=== PATIENT | male | born 1940 | race Caucasian/White ===

== ENCOUNTER 2017-05-06 11:10 | Day surgery (SDC) | payer MEDICARE, OTHER ==
[2017-05-06] MEDS ORDERED: Sodium Chloride 0.9% 10 ML Syringe FLUSH PRN (11:30)
[2017-05-06] MEDS ORDERED: Lactated Ringers 1,000 ML IV SCH (11:30)
[2017-05-06] MEDS ORDERED: Midazolam 1 MG/ML 2 ML SDV ONE ×2 (12:48→12:53)
[2017-05-06] MEDS ORDERED: Propofol 200 MG/20 ML SDV ONE ×2 (12:48→12:53)
[2017-05-06] MEDS ORDERED: fentaNYL 100 MCG/2 ML SDV ONE ×2 (12:48→12:53)
--- NOTE | 2017-05-06 12:55 | PCM.PN ---
- General Info Date of Service: 05/06/17 - Review of Systems Systems Review Comment:: 76-year-old male referred by Skip Tucker for colonoscopy. He was recently noted to have a positive FIT test. He also has had polyps removed from his colon in the past. He is medically stable to proceed today with no significant changes from his recent exam. I have discussed the proposed colonoscopy with the patient. Risks such as but not limited to bleeding and GI injury reviewed. He appears to understand and agrees to proceed. - Patient Data Vitals - Most Recent: Last Vital Signs Temp 97.0 F 05/06/17 11:30 Pulse 89 05/06/17 11:30 Resp 16 05/06/17 11:30 BP 145/79 H 05/06/17 11:30 Pulse Ox 97 05/06/17 11:30 Weight - Most Recent: 90.718 kg Lab Results Last 24 Hours: Laboratory Results - last 24 hr 05/06/17 Range/Units 11:50 POC Glucose 137 H (65-110) mg/dl Med Orders - Current: Current Medications Lactated Ringer's (Ringers, Lactated) 1,000 mls @ 70 mls/hr IV ASDIRECTED ARI Last Admin: 05/06/17 12:03 Dose: 70 mls/hr Sodium Chloride (Saline Flush) 10 ml FLUSH ASDIRECTED PRN PRN Reason: Keep Vein Open Discontinued Medications Fentanyl (Sublimaze) Confirm Administered Dose 100 mcg .ROUTE .STK-MED ONE Stop: 05/06/17 12:49 Midazolam HCl (Versed 1 Mg/Ml) Confirm Administered Dose 2 mg .ROUTE .STK-MED ONE Stop: 05/06/17 12:49 Propofol (Diprivan 20 Ml) Confirm Administered Dose 200 mg .ROUTE .STK-MED ONE Stop: 05/06/17 12:49 - Problem List Review Problem List Initiated/Reviewed/Updated: Yes - Assessment Assessment:: Guaiac positive stools - Plan Plan:: Colonoscopy
--- NOTE | 2017-05-06 13:30 | PCM.OPNOTE ---
- General Post-Op/Procedure Note Date of Surgery/Procedure: 05/06/17 Operative Procedure(s): Colonoscopy Findings: Small internal hemorrhoids normal appearing colon Pre Op Diagnosis: Guiac + Stools Post-Op Diagnosis: Hemorrhoids Anesthesia Technique: MAC Primary Surgeon: Arik Hinds Pathology: none Output, Urine Amount: 0 EBL in mLs: 0 Complications: None Condition: Good Free Text/Narrative:: Intake & Output 05/05/17 05/06/17 05/06/17 22:59 06:59 14:59 Intake Total 1000 Balance 1000
--- NOTE | 2017-05-07 13:16 | OR ---
Date of Procedure: 05/06/2017 PREOPERATIVE DIAGNOSIS: Guaiac-positive stools. POSTOPERATIVE DIAGNOSIS: Internal hemorrhoids. OPERATION PERFORMED: Colonoscopy. INDICATIONS FOR SURGERY: This 76-year-old male, who does have a known history of colon polyps, was recently noted to have a positive fit test. He is referred for colonoscopy. FINDINGS: No polyps or other abnormalities were seen in the patient's colon. He does have a mild degree of internal hemorrhoids, which may be the source of his recently positive test. PROCEDURE IN DETAIL: The patient was taken to the operating room. He was given intravenous sedation and with him in the left lateral decubitus position, digital rectal exam was performed. No rectal masses were noted. The Olympus colonoscope was inserted into the rectum. Retroflexed examination of the rectal canal was performed. The scope was then carefully advanced under direct visualization through the entire length of the colon until cecum is reached. Cecal acquisition was confirmed by noting the normal internal cecal anatomy including the appendiceal orifice and ileocecal valve. After carefully examining the cecum, the scope was slowly withdrawn sequentially re-examining the colonic segments. Once the colon had been completely examined and with no sign of any complication, the scope was removed and the patient was taken from the operating room in satisfactory condition. ESTIMATED BLOOD LOSS: Zero. COMPLICATIONS: None. PROGNOSIS: Good. AUDRA Hinds MD /[id number]
== END 2017-05-06 14:18 | disposition home or self-care (01) ==
LOC: LL.SDS 11:10
PROVIDERS: ATTEND Surgery
DX: K64.8 Other hemorrhoids (principal); Z86.010 Personal history of colon polyps; Z79.84 Long term (current) use of oral hypoglycemic drugs; Z79.899 Other long term (current) drug therapy
CPT/HCPCS: 45378; 82962; J7120; 00810-QZ; J2250; J2704; J3010

== ENCOUNTER → 2019-04-20 | Outpatient (CLI) | payer MEDICARE, OTHER | LOC: LL.SLEEP 08:27 | PROVIDERS: ATTEND Internal Medicine | DX: G47.33 Obstructive sleep apnea (adult) (pediatric) (principal) | CPT/HCPCS: Q3014 ==

== ENCOUNTER 2021-06-05 09:46 | Day surgery (SDC) | payer OTHER, MEDICARE ==
[~2021-06-05 09:46] MED LIST: Midazolam 1 MG/ML 2 ML SDV ONE; Propofol 200 MG/20 ML SDV ONE
[2021-06-05] MEDS ORDERED: Sodium Chloride 0.9% 10 ML Syringe FLUSH SCH (10:00)
[2021-06-05] MEDS ORDERED: Lactated Ringers 1,000 ML IV SCH (10:15)
--- NOTE | 2021-06-05 10:20 | PCM.HPR ---
H & P Addendum review - H & P Addendum Review Date of Original H & P: 05/13/21 Date Reviewed: 06/05/21 Time Reviewed: 10:20 Patient was Examined: No Changes
[2021-06-05] MEDS ORDERED: Propofol 200 MG/20 ML SDV ONE (10:32)
[2021-06-05] MEDS ORDERED: Midazolam 1 MG/ML 2 ML SDV ONE (10:32)
--- NOTE | 2021-06-05 10:53 | PCM.OPNOTE ---
- General Post-Op/Procedure Note Date of Surgery/Procedure: 06/05/21 Operative Procedure(s): Colonoscopy Findings: Normal Pre Op Diagnosis: Hx Colon Polyps Post-Op Diagnosis: Same Anesthesia Technique: MAC Primary Surgeon: Jm Quesada Anesthesia Provider: Tammy Dove Complications: None Condition: Good
--- NOTE | 2021-06-05 13:12 | OR ---
Date of Procedure: 06/05/2021 PREOPERATIVE DIAGNOSIS: History of colon polyps. POSTOPERATIVE DIAGNOSIS: Normal colonoscopy. PROCEDURE: Colonoscopy. ANESTHESIA: IV sedation. PROCEDURE IN DETAIL: The patient was brought to the procedure room where he was placed on his left side and IV sedation administered. Digital rectal exam was performed, which was normal. Colonoscope was inserted and advanced to the level of the cecum without difficulty. Cecal position was confirmed by identifying the appendiceal lumen and ileocecal valve. Prep was fair with some thick stool remaining throughout that was mostly irrigated and suctioned such that large polyps or tumors would have been visible. Upon withdrawing the scope, the ascending, transverse, and descending colon were normal in appearance. Sigmoid colon and rectum were normal. Retroflexion was normal. Air was removed and the scope withdrawn. Patient tolerated the procedure well and returned to recovery in stable condition. No further colon screenings are necessary due to patient's age. AUDRA MONGE MD /[id number]
== END 2021-06-05 12:05 | disposition home or self-care (01) ==
LOC: LL.SDS 09:46
PROVIDERS: ATTEND Surgery
DX: Z12.11 Encounter for screening for malignant neoplasm of colon (principal); N40.0 Benign prostatic hyperplasia without lower urinary tract symptoms; E11.9 Type 2 diabetes mellitus without complications; D07.5 Carcinoma in situ of prostate; I10 Essential (primary) hypertension; E78.2 Mixed hyperlipidemia; D64.9 Anemia, unspecified; N52.9 Male erectile dysfunction, unspecified; G47.33 Obstructive sleep apnea (adult) (pediatric); Z79.899 Other long term (current) drug therapy; Z79.84 Long term (current) use of oral hypoglycemic drugs
CPT/HCPCS: 00812; 82947; J2250; J2704; J7120

== ENCOUNTER 2021-06-15 13:48 | Emergency (ER) | payer OTHER, MEDICARE ==
[2021-06-15] MEDS ORDERED: Sodium Chloride 0.9% 10 ML Syringe FLUSH PRN (13:55)
[2021-06-15 14:54] LABS: CORONAVIRUS COVID-19 NAA NEGATIVE (NEGATIVE); RESPIRATORY SYNCYTIAL VIR NAA NEGATIVE (NEGATIVE)
[2021-06-15 15:03] LABS: ANION GAP 11.7 meq/L (7-15); CHLORIDE,CL 107 mmol/L (98-107); SODIUM,NA 142 mmol/L (136-145)
[2021-06-15] MEDS: Sodium Chloride 0.9% 1,000 ML IV SCH (16:55)
== END 2021-06-15 19:20 | disposition home or self-care (01) ==
LOC: SUPCPDRO 13:48 → LL.ED 13:48
DX: E86.0 Dehydration (principal); I10 Essential (primary) hypertension; E11.9 Type 2 diabetes mellitus without complications; J44.9 Chronic obstructive pulmonary disease, unspecified; E66.9 Obesity, unspecified; Z79.84 Long term (current) use of oral hypoglycemic drugs; Z79.899 Other long term (current) drug therapy; Z20.822 Contact with and (suspected) exposure to COVID-19; W19.XXXA Unspecified fall, initial encounter
CPT/HCPCS: 0241U; 36415; 70450; 71045; 80053; 80307; 81001; 83605; 83735; 84100; 84484; 85025; 85610; 85730; 86140; 87040; 93005; 99285-25; J7030

== ENCOUNTER 2022-04-11 11:05 | Emergency (ER) | payer OTHER, MEDICARE | END 2022-04-11 12:40 | disposition home or self-care (01) | LOC: LL.ED 11:05 | DX: S60.222A Contusion of left hand, initial encounter (principal); I10 Essential (primary) hypertension; E11.9 Type 2 diabetes mellitus without complications; E66.9 Obesity, unspecified; Z68.28 Body mass index [BMI] 28.0-28.9, adult; Z79.84 Long term (current) use of oral hypoglycemic drugs; W00.0XXA Fall on same level due to ice and snow, initial encounter; Y93.01 Activity, walking, marching and hiking; Y92.481 Parking lot as the place of occurrence of the external cause | CPT/HCPCS: 99283 ==

== ENCOUNTER 2022-07-07 13:52 | Emergency (ER) | payer OTHER, MEDICARE ==
[2022-07-07 14:41] LABS: ANION GAP 10.8 meq/L (7-15); CHLORIDE,CL 104 mmol/L (98-107); ESTIMATED GFR 49 mL/min (>=60); SODIUM,NA 140 mmol/L (136-145)
[2022-07-07] MEDS ORDERED: Sodium Chloride 0.9% 1,000 ML IV ONE (14:50)
[2022-07-07] MEDS ORDERED: Sodium Chloride 0.9% 500 ML IV SCH (15:00)
== END 2022-07-07 17:50 ==
LOC: LL.ED 13:52
DX: R53.1 Weakness (principal); E83.42 Hypomagnesemia; R22.9 Localized swelling, mass and lump, unspecified; W19.XXXA Unspecified fall, initial encounter
CPT/HCPCS: 36415; 70450; 71045; 80053; 81001; 82947; 83605; 83735; 83880; 84484; 85025; 85379; 85610; 93005; 93010; 96365; 96366; 99284; 99285-25; C1758; J3475; J7030